=== PATIENT | male | born 1960 | race Caucasian/White ===

== ENCOUNTER 2016-11-16 15:19 | Emergency (ER) | payer MEDICARE ==
[~2016-11-16] VITALS: Ht 170.2 cm; Wt 79.4 kg
[~2016-11-16 15:19] MED LIST: ACET325T9 PO; AMIT75TA PO; AMLO2.5T PO; AMLO5TAB2 PO; AMOX1TAB61 PO; AMOX500C PO; ASPI325T70 PO; ASPI325T8 PO; ATOR40TA59 PO; CLOP75TA PO; CRESTOR10 MG PO; CYCL10TA2 PO; DIAZ2TAB PO; DIAZ5TAB PO; DIAZ5TAB4 PO; DICY20TA3 PO; DULO60CA6 PO; FAMO40TA4 PO; FLUT9.9S NS; GABA-586 PO; HYDR-2758 PO; Hydrocodone/Acetaminophen PO; IBUP-1027 PO; IBUP200T43 PO; LACT1CAP8 PO; LEVO25TA4 PO; LEVO25TA55 PO; LEVO50TA PO; LEVOTH; LIPA1CAP12 PO; LISI10TA2 PO; LISI40TA PO; MAGN400T3 PO; METF-620 PO; METF500T4 PO; METO10SO PO; METO10TA81 PO; OMEP20CA9 PO; ONDA4TAB7 PO; PANT40TA3 PO; PARO20TA3 PO; PARO20TA99 PO; POLY17PO29 PO; PREG150C PO; QUET100T4 PO; SIMV20TA PO; SUCR1TAB PO; TIZA4CAP3 PO; TRAM100T PO; TRAM50TA PO; levothyroxine
[2016-11-16 16:00] VITALS: BP 159/99
[2016-11-16] MEDS ORDERED: CYCL10TA2 PO (16:35)
--- NOTE | 2016-11-16 16:35 | PHYS DOC ---
Past Medical History Past Medical History: Anxiety, Depression, GERD, Hypertension, Hypothyroid, Other Additional Past Medical Histor: Narcotics abuse Past Surgical History: Cholecystectomy, Lumbar Laminectomy, Pacemaker Additional Past Surgical Histo: Pain Pump insertion for back pain Alcohol Use: Rarely Drug Use: None Adult General Chief Complaint Chief Complaint: BACK PAIN OR INJURY [facility] HPI Patient is a 56 year old male presents emergency department stating that he has been having lower back pain and discomfort that goes down bilateral legs. He states that he's had some numbness and tingling in the legs. Patient has been noted to have back surgeries and has a pain pump. Patient states that he has developed upper back pain and discomfort. He states that he has been taken naproxen for the pain. He denies any emesis during his upper extremities. Patient is able to walk with a steady gait. He states that he was walking back and forth to the store was carrying some heavy bags when the pain and discomfort started as upper extremities. Patient states that approximately one hour after he had walked back and had stepped on uneven concrete and felt pain in his lower back that he had incontinence of bowel. He denies any incontinence of urine. He denies any numbness or tingling in the perineal area. Review of Systems Review of Systems Constitutional: Denies fever or chills [] Eyes: Denies change in visual acuity, redness, or eye pain [] HENT: Denies nasal congestion or sore throat [] Respiratory: Denies cough or shortness of breath [] Cardiovascular: No additional information not addressed in HPI [] GI: Denies abdominal pain, nausea, vomiting, bloody stools or diarrhea [] : Denies dysuria or hematuria [] Musculoskeletal: Lower back and upper back pain and discomfort. Integument: Denies rash or skin lesions [] Neurologic: Denies headache, focal weakness or sensory changes [] Endocrine: Denies polyuria or polydipsia [] Allergies Allergies Allergies Coded Allergies Type Severity Reaction Last Updated Verified Haloperidol Lactate Allergy Severe TONGUE, THROAT SWELLING 04/12/15 Yes haloperidol Allergy Severe TONGUE, THROAT SWELLING 04/12/15 Yes baclofen Allergy Intermediate 04/12/15 Yes oxycodone Allergy Intermediate Rash 04/12/15 Yes Physical Exam Physical Exam Constitutional: Well developed, well nourished, no acute distress, non-toxic appearance. [] HENT: Normocephalic, atraumatic, bilateral external ears normal, oropharynx moist, no oral exudates, nose normal. [] Eyes: PERRLA, EOMI, conjunctiva normal, no discharge. [] Neck: Normal range of motion, no tenderness, supple, no stridor. [] Cardiovascular:Heart rate regular rhythm, no murmur [] Lungs & Thorax: Bilateral breath sounds clear to auscultation [] Skin: Warm, dry, no erythema, no rash. [] Back: No thoracic or lumbar spine tenderness, no step-offs no deformities and no crepitus noted. Patient did have tenderness noted in the upper back area as well as the right lower back. Patient with decreased ability to raise right leg due to discomfort noted. Patient states that he has tingling in the right leg more so in the right. Upon palpation of the perineal area. Patient denies any numbness or tingling. Extremities: No tenderness, no cyanosis, no clubbing, ROM intact, no edema. [] Neurologic: Alert and oriented X 3, normal motor function, normal sensory function, no focal deficits noted. [] Psychologic: Affect normal, judgement normal, mood normal. [] Current Patient Data Vital Signs Vital Signs Date Time Temp Pulse Resp B/P (MAP) Pulse Ox O2 Delivery O2 Flow Rate FiO2 11/16/16 16:00 98.0 107 20 98 Room Air 98.0 EKG EKG [] Radiology/Procedures Radiology/Procedures [] Course & Med Decision Making Course & Med Decision Making Pertinent Labs and Imaging studies reviewed. (See chart for details) Originally I was considering equina caudal syndrome although the patient has been able to ambulate, he was not incontinent of urine. In the incontinence of bowel happened approximately an hour and a half after his walk. She states that he has morphine in his pump as well as Klonopin and he believes baclofen however baclofen is listed as an allergy here in the emergency department. Spoke with patient regards to providing him with a prescription for Flexeril. Also instructed him that this medication will cause drowsiness. Patient was also instructed to follow-up with his pain management for further pain control. Also recommended ice packs on 20 minutes off 20 minutes several times a day. Patient will be discharged home in stable condition signs and symptoms to return back to emergency department as been provided. [] Dragon Disclaimer Dragon Disclaimer This electronic medical record was generated, in whole or in part, using a voice recognition dictation system. Departure Departure Impression: Primary Impression: Back pain Disposition: 01 HOME, SELF-CARE Condition: STABLE Referrals: ERON KOO MD (PCP) Patient Instructions: Back Pain, Adult, [id number] Additional Instructions: Activity as tolerated Medication a prescribed Flexeril will cause drowsiness do not take if you need to be alert and oriented Ice packs on 20 minutes and off 20 minutes several times a day Followup with pain management physician for further pain control Return to emergency department as needed for signs and symptoms that become worse. Scripts Cyclobenzaprine Hcl (CYCLOBENZAPRINE HCL) 10 Mg Tablet 10 MG PO TID Y for MUSCLE SPASMS, #20 TAB Prov: KATHARINE DENISE APRN 11/16/16 KATHARINE DENISE APRN Nov 16, 2016 16:35
== END 2016-11-16 16:38 | disposition home or self-care (01) ==
LOC: ER 15:19
DX: M54.5 Low back pain (principal); R20.0 Anesthesia of skin; R20.2 Paresthesia of skin; F41.9 Anxiety disorder, unspecified; F32.9 Major depressive disorder, single episode, unspecified; K21.9 Gastro-esophageal reflux disease without esophagitis; I10 Essential (primary) hypertension; E03.9 Hypothyroidism, unspecified; F11.10 Opioid abuse, uncomplicated; Z88.5 Allergy status to narcotic agent; Z88.8 Allergy status to other drugs, medicaments and biological substances; Z95.0 Presence of cardiac pacemaker; Z90.49 Acquired absence of other specified parts of digestive tract
CPT/HCPCS: 99283

== ENCOUNTER 2017-01-14 10:50 | Emergency (ER) | payer MEDICARE ==
[~2017-01-14] VITALS: Ht 170.2 cm; Wt 79.4 kg
--- NOTE | 2017-01-14 11:57 | RAD ---
CT head without IV contrast Indication: Dizziness from fall last . Technique: CT head without IV contrast Comparison: Prior CT head from 09/30/2016 Findings: No pathologic extra-axial or intra-axial fluid collection. No acute intracranial bleed. The ventricles and basal cisterns are within normal limits. The moise-white differentiation is preserved. Orbits within normal limits. No calvarial fractures. Visualized paranasal sinuses and mastoid air cells are clear. Impression: No acute intracranial process on this noncontrast study. PQRS Compliance Statement: One or more of the following individualized dose reduction techniques were utilized for this examination: 1. Automated exposure control 2. Adjustment of the mA and/or kV according to patient size 3. Use of iterative reconstruction technique
[2017-01-14 12:03] LABS: BASO # 0.1 x10^3/uL (0.0-0.2); BASO % 1 % (0-3); EOS % 2 % (0-3); HEMATOCRIT 41.3 % (39.0-53.0); HEMOGLOBIN 14.5 g/dL (13.0-17.5); LYMPH # 2.7 x10^3/uL (1.0-4.8); LYMPH % 32 % (24-48); MEAN CORPUSCULAR HEMOGLOBIN 33 pg (25-35); MEAN CORPUSCULAR HGB CONC 35 g/dL (31-37); MEAN CORPUSCULAR VOLUME 95 fL (79-100); MONO % 7 % (0-9); NEUT % 57 % (31-73); PLATELET COUNT 234 x10^3/uL (140-400); RED BLOOD COUNT 4.33 x10^6/uL (4.30-5.70); RED CELL DISTRIBUTION WIDTH 13.5 % (11.5-14.5); WHITE BLOOD COUNT 8.5 x10^3/uL (4.0-11.0)
[2017-01-14 12:16] LABS: CREATININE 0.8 mg/dL (0.7-1.3); GFR 99.6; POTASSIUM 4.4 mmol/L (3.5-5.1)
--- NOTE | 2017-01-14 12:38 | EKG ---
[facility] [address] [place] [address] Test Date: 2017-01-14 Test Time: 10:59:38 Pat Name: BRI ZUNIGA Department: Room: Gender: M Health Services Coordinator: : 1960 Requested By: ELIZABETH GREENWOOD Order Number: [id number] Reading MD: Jarvis Slater Measurements Intervals [place] Rate: 93 P: 37 MA: 154 QRS: 31 QRSD: 84 T: 32 QT: 328 QTc: 410 Interpretive Statements SINUS RHYTHM Electronically Signed On 01-19-2017 14:27:23 CDT by Jarvis Slater
[2017-01-14 12:54] LABS: BARBITURATES NEG (NEG); BENZODIAZEPINES POS (NEG); CANNABINOIDS NEG (NEG); COCAINE NEG (NEG); METHADONE NEG (NEG); OPIATES NEG (NEG); PHENCYCLIDINE NEG (NEG)
--- NOTE | 2017-01-14 13:02 | RAD ---
Chest x-ray Indication: Dizziness for 2 to 3 days, left-sided chest pain last night. Technique: Portable AP upright chest x-ray Comparison: Previous study from 09/30/2016 Findings: Left chest wall cardiac device is seen with its lead projecting over the heart. Heart is normal in size. Lungs are clear. No pneumothorax or pleural effusion. Visualized bony thorax within normal limits. Impression: No acute cardiopulmonary process.
[2017-01-14 13:11] VITALS: BP 153/97
[2017-01-14] MEDS ORDERED: ACETAMINOPHEN 500 MG TABLET PO ONE (13:45)
--- NOTE | 2017-01-14 15:17 | ED.ADGEN ---
Past Medical History Past Medical History: Anxiety, Depression, GERD, Hypertension, Hypothyroid, Other Additional Past Medical Histor: Narcotics abuse Past Surgical History: Cholecystectomy, Lumbar Laminectomy, Pacemaker Additional Past Surgical Histo: Pain Pump insertion for back pain Alcohol Use: Rarely Drug Use: None Adult General Chief Complaint Chief Complaint: HEAD INJURY/TRAUMA HPI HPI Patient is a 56 year old and, history of depression, anxiety, hypertension, GERD, who presents to the emergency department with complaint of dizziness. Patient states that he had a fall off of a chair while fixing a ceiling fan 5 days ago. He states that he was seen at [facility] after this occurred, states they were x-rayed his shoulder, and told that he had a concussion. He states that he's felt a persistently dizzy since that time. Does describe it as both a sensation of the room spinning, and as of lightheadedness as though he might pass out. Is worse with standing upright with motion. He states also that he felt as though his pacemaker was "going off", last night 5 or 6 times. Patient does not have an AICD. denies any chest pain, any shortness of breath states that he is feeling lightheaded, though he might pass out, denies any focal weakness, numbness or tingling, no vision changes, complaining of an allover headache. Also complaining of pain in the left shoulder, which she states he did strike when he fell, which was x-rayed as stated without any abnormality identified at [facility]. He states that he was taking his home medications as directed. He denies any other injuries or complaints. Review of Systems Review of Systems Constitutional: Denies fever or chills. [] Eyes: Denies change in visual acuity. [] HENT: Denies nasal congestion or sore throat. [] Respiratory: Denies cough or shortness of breath. [] Cardiovascular: Denies chest pain or edema. [] GI: Denies abdominal pain, nausea, vomiting, bloody stools or diarrhea. [] : Denies dysuria. [] Musculoskeletal: Denies back pain, left shoulder pain. Integument: Denies rash. [] Neurologic: Denies focal weakness or sensory changes. Headache. Lightheadedness. [] Endocrine: Denies polyuria or polydipsia. [] Lymphatic: Denies swollen glands. [] Psychiatric: Denies depression or anxiety. [] Current Medications Current Medications Current Medications Medications (Trade) Dose Ordered Sig/Ja Start Time Stop Time Status Last Admin Dose Admin Acetaminophen (Tylenol) 1,000 mg 1X ONCE 01/14/17 13:45 01/14/17 13:46 DC Allergies Allergies Allergies Coded Allergies Type Severity Reaction Last Updated Verified Haloperidol Lactate Allergy Severe TONGUE, THROAT SWELLING 04/12/15 Yes haloperidol Allergy Severe TONGUE, THROAT SWELLING 04/12/15 Yes baclofen Allergy Intermediate 04/12/15 Yes oxycodone Allergy Intermediate Rash 04/12/15 Yes Physical Exam Physical Exam Constitutional: Well developed, well nourished, no acute distress, non-toxic appearance. [] HENT: Normocephalic, atraumatic, bilateral external ears normal, oropharynx moist, no oral exudates, nose normal. [] Eyes: PERRLA, EOMI, conjunctiva normal, no discharge. [] Neck: Normal range of motion, no tenderness, supple, no stridor. [] Cardiovascular:Heart rate regular rhythm, no murmur, S1, S2, rubs or gallops. [] Lungs & Thorax: Bilateral breath sounds clear to auscultation, no wheezing, rhonchi, rales. No chest or crepitus or tenderness. [] Abdomen: Bowel sounds normal, soft, no tenderness, no rebound, rigidity, no guarding, no masses, no pulsatile masses. [] Skin: Warm, dry, no erythema, no rash. [] Back: No tenderness, no CVA tenderness. [] Extremities: No tenderness, no cyanosis, no clubbing, ROM intact, no edema. [] Neurologic: Alert and oriented X 3, normal motor function, normal sensory function, no focal deficits noted. [] Psychologic: Affect normal, judgement normal, mood normal. [] Current Patient Data Vital Signs Vital Signs Date Time Temp Pulse Resp B/P (MAP) Pulse Ox O2 Delivery O2 Flow Rate FiO2 01/14/17 11:00 98.0 91 18 173/101 (125) 96 Room Air 98.0 Lab Values Laboratory Tests Test 01/14/17 11:50 01/14/17 12:20 White Blood Count 8.5 x10^3/uL (4.0-11.0) Red Blood Count 4.33 x10^6/uL (4.30-5.70) Hemoglobin 14.5 g/dL (13.0-17.5) Hematocrit 41.3 % (39.0-53.0) Mean Corpuscular Volume 95 fL (79-100) Mean Corpuscular Hemoglobin 33 pg (25-35) Mean Corpuscular Hemoglobin Concent 35 g/dL (31-37) Red Cell Distribution Width 13.5 % (11.5-14.5) Platelet Count 234 x10^3/uL (140-400) Neutrophils (%) (Auto) 57 % (31-73) Lymphocytes (%) (Auto) 32 % (24-48) Monocytes (%) (Auto) 7 % (0-9) Eosinophils (%) (Auto) 2 % (0-3) Basophils (%) (Auto) 1 % (0-3) Neutrophils # (Auto) 4.8 x10^3uL (1.8-7.7) Lymphocytes # (Auto) 2.7 x10^3/uL (1.0-4.8) Monocytes # (Auto) 0.6 x10^3/uL (0.0-1.1) Eosinophils # (Auto) 0.2 x10^3/uL (0.0-0.7) Basophils # (Auto) 0.1 x10^3/uL (0.0-0.2) Sodium Level 138 mmol/L (136-145) Potassium Level 4.4 mmol/L (3.5-5.1) Chloride Level 102 mmol/L (98-107) Carbon Dioxide Level 29 mmol/L (21-32) Anion Gap 7 (6-14) Blood Urea Nitrogen 8 mg/dL (8-26) Creatinine 0.8 mg/dL (0.7-1.3) Estimated GFR (Cockcroft-Gault) 99.6 Glucose Level 141 mg/dL (70-99) H Calcium Level 9.0 mg/dL (8.5-10.1) Troponin I Quantitative < 0.017 ng/mL (0.000-0.055) RQ-Cyo-V-Type Natriuretic Peptide 25 pg/mL (0-124) Urine Opiates Screen Neg (NEG) Urine Methadone Screen Neg (NEG) Urine Barbiturates Neg (NEG) Urine Phencyclidine Screen Neg (NEG) Urine Amphetamine/Methamphetamine Neg (NEG) Urine Benzodiazepines Screen Pos (NEG) Urine Cocaine Screen Neg (NEG) Urine Cannabinoids Screen Neg (NEG) Urine Ethyl Alcohol Neg (NEG) Laboratory Tests 01/14/17 11:50 Laboratory Tests 01/14/17 11:50 EKG EKG EC: Sinus rhythm, heart rate 93 beats/minute, upright axis, QTC of 410, MO 144, QRS of 84, no ST elevations or depressions. As interpreted by me. [] Radiology/Procedures Radiology/Procedures [][place] [id number] IMAGING REPORT Signed PATIENT: BRI ZUNIGA ACCOUNT: [id number] : 1960 LOCATION: ER AGE: 56 SEX: M EXAM STATUS: REG ER ORD. PHYSICIAN: ELIZABETH GREENWOOD DO REASON: Dizziness PROCEDURE: CHEST AP ONLY Chest x-ray Indication: Dizziness for 2 to 3 days, left-sided chest pain last night. Technique: Portable AP upright chest x-ray Comparison: Previous study from 09/30/2016 Findings: Left chest wall cardiac device is seen with its lead projecting over the heart. Heart is normal in size. Lungs are clear. No pneumothorax or pleural effusion. Visualized bony thorax within normal limits. Impression: No acute cardiopulmonary process. DICTATED and SIGNED BY: FLAKITA RAMESH DO DATE: 01/14/17 1258 CC: ERON KOO MD; ELIZABETH GREENWOOD DO ~ Impressions: [address] [id number] IMAGING REPORT Signed PATIENT: BRI ZUNIGA ACCOUNT: [id number] : 1960 LOCATION: ER AGE: 56 SEX: M EXAM STATUS: REG ER ORD. PHYSICIAN: ELIZABETH GREENWOOD DO REASON: Dizziness/ hx fall PROCEDURE: CT HEAD WO CONTRAST CT head without IV contrast Indication: Dizziness from fall last . Technique: CT head without IV contrast Comparison: Prior CT head from 09/30/2016 Findings: No pathologic extra-axial or intra-axial fluid collection. No acute intracranial bleed. The ventricles and basal cisterns are within normal limits. The moise-white differentiation is preserved. Orbits within normal limits. No calvarial fractures. Visualized paranasal sinuses and mastoid air cells are clear. Impression: No acute intracranial process on this noncontrast study. PQRS Compliance Statement: One or more of the following individualized dose reduction techniques were utilized for this examination: 1. Automated exposure control 2. Adjustment of the mA and/or kV according to patient size 3. Use of iterative reconstruction technique DICTATED and SIGNED BY: FLAKITA RAMESH DO DATE: 01/14/17 2362 CC: ERON KOO MD; ELIZABETH GREENWOOD DO ~ Course & Med Decision Making Course & Med Decision Making Pertinent Labs and Imaging studies reviewed. (See chart for details) Due to patient's history and complaints, CT of the head obtained along laboratory studies, chest x-ray, and interrogation of his pacemaker using the portable [employer] device. I did also speak to the [employer] sales representative consultant, Bill via telephone after reviewing the report, no concerning findings were identified. CT of the head was unremarkable, patient's telemetry studies did not reveal any concerning findings. I did discuss findings with patient, he states he continues to have a headache. Patient was offered Tylenol the emergency department, and ambulatory trial. During and was very trial, patient stated that he was having difficulty, was able to ambulate to the door, before he stopped and said that he felt too lightheaded and dizzy to go on. I did discuss these findings with patient, and offered him admission to the hospital for additional evaluation and monitoring. At that point patient reiterated that he was experiencing headache, and I discussed the patient that I would not be open to getting narcotic medications due to concern for his dizziness. At that point, patient stated "if you're not to treat me than I'm going to leave". He began pulling off his leads and monitoring devices, and pulled out his IV. I discussed with patient that with his complaints of possible postconcussive syndrome, with a ambulatory dysfunction, we wanted to do what was safest for him , which would preclude giving him opiate medications. Patient stated that "I will make my way out of here", he did stand, and exhibit some signs of unsteadiness, and discussed with patient that due to his persistent difficulties with ambulation that I would have to recommend admission to the hospital for additional evaluation, and would be unable to discharge him. He did subsequently sign AGAINST MEDICAL ADVICE, and ambulated from the emergency department without issue. Dragon Disclaimer Dragon Disclaimer This electronic medical record was generated, in whole or in part, using a voice recognition dictation system. Departure Impression: Primary Impression: Dizziness Disposition: 07 AGAINST MEDICAL ADVICE Condition: STABLE ELIZABETH GREENWOOD DO Jan 14, 2017 15:17
== END 2017-01-14 14:01 | disposition left against medical advice (07) ==
LOC: ER 10:50
DX: R42 Dizziness and giddiness (principal); R51 Headache; M25.512 Pain in left shoulder; I10 Essential (primary) hypertension; K21.9 Gastro-esophageal reflux disease without esophagitis; E03.9 Hypothyroidism, unspecified; Z95.0 Presence of cardiac pacemaker; Z53.21 Procedure and treatment not carried out due to patient leaving prior to being seen by health care provider
CPT/HCPCS: 36415; 70450; 71010; 80048; 80307; 83880; 84484; 85025; 93005; 99285-25; G0479

== ENCOUNTER 2017-05-24 18:34 | Emergency (ER) | payer MEDICARE ==
[2017-05-24] MEDS ORDERED: IV NORMAL SALINE 1000ML BAG 1,000 ML IV (18:45)
[2017-05-24 19:32] LABS: INFLUENZA A PATIENT NEGATIVE (NEGATIVE); INFLUENZA B PATIENT NEGATIVE (NEGATIVE); OBC FLU VALID
== END 2017-05-24 19:10 | disposition left against medical advice (07) ==
LOC: ER 18:34
DX: E86.0 Dehydration (principal); R53.1 Weakness; Z76.5 Malingerer [conscious simulation]; E03.9 Hypothyroidism, unspecified; I10 Essential (primary) hypertension; K21.9 Gastro-esophageal reflux disease without esophagitis; Z90.49 Acquired absence of other specified parts of digestive tract; Z95.0 Presence of cardiac pacemaker; Z88.5 Allergy status to narcotic agent; Z88.8 Allergy status to other drugs, medicaments and biological substances
CPT/HCPCS: 87804; 87804-59; 93005; 99285-25

== ENCOUNTER 2017-10-12 14:32 | Emergency (ER) | payer MEDICARE ==
[2017-10-12] MEDS ORDERED: CONTRAST GIVEN MC (15:30)
[2017-10-12 15:41] LABS: ADD MAN DIFF? NO
[2017-10-12 15:43] LABS: BASO % 1 % (0-3); EOS # 0.1 x10^3/uL (0.0-0.7); EOS % 1 % (0-3); HEMATOCRIT 45.7 % (39.0-53.0); HEMOGLOBIN 15.9 g/dL (13.0-17.5); LYMPH % 24 % (24-48); MEAN CORPUSCULAR HEMOGLOBIN 34 pg (25-35); MEAN CORPUSCULAR HGB CONC 35 g/dL (31-37); MEAN CORPUSCULAR VOLUME 97 fL (79-100); MONO # 0.3 x10^3/uL (0.0-1.1); MONO % 4 % (0-9); NEUT # 5.9 x10^3uL (1.8-7.7); NEUT % 71 % (31-73); PLATELET COUNT 214 x10^3/uL (140-400); RED BLOOD COUNT 4.73 x10^6/uL (4.30-5.70); RED CELL DISTRIBUTION WIDTH 13.2 % (11.5-14.5); WHITE BLOOD COUNT 8.4 x10^3/uL (4.0-11.0)
[2017-10-12 15:52] LABS: BILIRUBIN,URINE SMALL (NEG); CLARITY,URINE CLEAR; COLOR,URINE YELLOW; GLUCOSE,URINE 500 mg/dL (NEG); NITRITE,URINE NEGATIVE (NEG); PROTEIN,URINE NEGATIVE (NEG-TRACE)
[2017-10-12 16:00] LABS: ANION GAP 7 (6-14); BLOOD UREA NITROGEN 12 mg/dL (8-26); BUN/CREATININE RATIO 12 (6-20); CALCIUM 8.7 mg/dL (8.5-10.1); CARBON DIOXIDE 29 mmol/L (21-32); CHLORIDE 101 mmol/L (98-107); GLUCOSE 221 mg/dL (70-99); POTASSIUM 3.4 mmol/L (3.5-5.1); SODIUM 137 mmol/L (136-145)
[2017-10-12 16:06] LABS: ALBUMIN 3.9 g/dL (3.4-5.0); ALK PHOS 88 U/L (46-116); ALT (SGPT) 30 U/L (16-63); AST (SGOT) 16 U/L (15-37); CREATINE KINASE 323 U/L (39-308); TOTAL BILIRUBIN 0.9 mg/dL (0.2-1.0); TOTAL PROTEIN 7.9 g/dL (6.4-8.2)
[2017-10-12 16:17] LABS: BARBITURATES NEG (NEG); BENZODIAZEPINES POS (NEG); CANNABINOIDS NEG (NEG); COCAINE NEG (NEG); METHADONE NEG (NEG); OPIATES NEG (NEG); PHENCYCLIDINE NEG (NEG)
[2017-10-12 16:24] LABS: AMPHETAMINE/METHAMPHETAMINE NEG (NEG); ETHANOL, URINE NEG (NEG)
[2017-10-12] MEDS: IOHEXOL 300 MG/ML 100ML VIAL. IV (16:33)
[2017-10-12 16:53] LABS: BACTERIA,URINE FEW /HPF (0-FEW); RBC,URINE 0 /HPF (0-2); SQUAMOUS EPITHELIAL CELL,UR OCC /LPF
[2017-10-12 16:54] LABS: HYALINE CASTS, URINE FEW /HPF
[2017-10-12] MEDS ORDERED: fentaNYL PF VIAL 100 MCG/2 ML VIAL (17:41)
[2017-10-12] MEDS: fentaNYL PF VIAL 100 MCG/2 ML VIAL IV (17:45)
== END 2017-10-12 18:14 | disposition home or self-care (01) ==
LOC: ER 14:32
DX: F41.9 Anxiety disorder, unspecified (principal); M54.2 Cervicalgia; F32.9 Major depressive disorder, single episode, unspecified; I10 Essential (primary) hypertension; E03.9 Hypothyroidism, unspecified; K21.9 Gastro-esophageal reflux disease without esophagitis; F11.10 Opioid abuse, uncomplicated; Z76.5 Malingerer [conscious simulation]; Z88.5 Allergy status to narcotic agent; Z88.8 Allergy status to other drugs, medicaments and biological substances; Z95.0 Presence of cardiac pacemaker; Z90.49 Acquired absence of other specified parts of digestive tract
CPT/HCPCS: 36415; 70450; 70496; 70498; 72125; 80053; 80307; 81001; 82550; 85025; 93005; 96374; 96375; 99285-25; J2060; J3010; Q9967